=== PATIENT | female | born 1955 | race Caucasian/White ===

== ENCOUNTER 2017-01-19 00:49 | Inpatient (IN) | payer OTHER ==
--- NOTE | 2017-01-19 01:00 | C.PDOC ---
History Of Present Illness The patient presents to the ED for evaluation of mid-epigastric abdominal pain which began this morning. Patient took some antacid medicine today without relief. She denies fever, chills, nausea, vomiting. Time Seen by Provider: 01/19/17 00:59 History Per: Patient History/Exam Limitations: no limitations Onset/Duration Of Symptoms: Hrs Current Symptoms Are (Timing): Still Present Severity: Moderate Pain Scale Rating Of: 6 Location Of Pain/Discomfort: Epigastric (mid) Radiation Of Pain To:: None Quality Of Discomfort: Burning, "Pain" Associated Symptoms: denies: Fever, Chills, Nausea, Vomiting Alleviating Factors: None Last Bowel Movement: Today Recent travel outside of the [place]: No Additional History Per: Patient Abnormal Vaginal Bleeding: No Past Medical History Reviewed: Historical Data, Nursing Documentation, Vital Signs Vital Signs: Last Vital Signs Temp 97.6 F 01/19/17 01:07 Pulse 119 H 01/19/17 01:07 Resp 20 01/19/17 01:07 BP 149/91 H 01/19/17 01:07 Pulse Ox 98 01/19/17 02:13 - Medical History PMH: No Chronic Diseases Surgical History: No Surg Hx Family History: States: Unknown Family Hx - Social History Hx Alcohol Use: No Hx Substance Use: No - Immunization History Hx Tetanus Toxoid Vaccination: No Hx Influenza Vaccination: No Hx Pneumococcal Vaccination: No Review Of Systems Constitutional: Negative for: Fever, Chills Cardiovascular: Negative for: Chest Pain, Palpitations Respiratory: Negative for: Cough, Shortness of Breath Gastrointestinal: Positive for: Abdominal Pain. Negative for: Nausea, Vomiting , Diarrhea, Constipation Skin: Negative for: Rash, Lesions, Jaundice, Bruising Neurological: Negative for: Weakness Psych: Negative for: Anxiety Physical Exam - Physical Exam Appears: Non-toxic, No Acute Distress Skin: Warm, Dry Head: Normacephalic Eye(s): bilateral: Normal Inspection Oral Mucosa: Moist Neck: Supple Chest: Symmetrical, No Deformity, No Tenderness Cardiovascular: Rhythm Regular Respiratory: No Rales, No Rhonchi, No Wheezing Gastrointestinal/Abdominal: Soft, Tenderness (mid-epigastric ), No Guarding, No Rebound Extremity: Normal ROM, Capillary Refill (less than 2 seconds ) Extremity: Bilateral: Atraumatic Pulses: Left Dorsalis Pedis: Normal, Right Dorsalis Pedis: Normal Neurological/Psych: Oriented x3, Normal Speech Gait: Steady ED Course And Treatment - Laboratory Results Result Diagrams: 01/19/17 01:39 01/19/17 01:39 ECG: Interpreted By Me, Viewed By Me ECG Rhythm: Sinus Tachycardia (110), Nonspecific Changes O2 Sat by Pulse Oximetry: 98 (on RA ) Pulse Ox Interpretation: Normal Progress Note: Bloodwork, UA, EKG ordered and reviewed. Protonix IVP. Disposition Discussed With Dr.: Dvaid Vera Comment: accepted the pt onhis service and took over the care at 4AM Doctor Will See Patient In The: Hospital Counseled Patient/Family Regarding: Studies Performed, Diagnosis - Disposition Disposition: HOSPITALIZED Disposition Time: 01:00 Condition: FAIR - POA Present On Arrival: Poor Glycemic Control - Clinical Impression Clinical Impression: Acute pancreatitis, Abdominal pain - Scribe Statement The provider has reviewed the documentation as recorded by the Scribe (Che Brice) Provider Attestation: All medical record entries made by the Scribe were at my direction and personally dictated by me. I have reviewed the chart and agree that the record accurately reflects my personal performance of the history, physical exam, medical decision making, and the department course for this patient. I have also personally directed, reviewed, and agree with the discharge instructions and disposition. Decision To Admit - Pt Status Changed To: Hospital Disposition Of: Inpatient - Admit Certification Admit to Inpatient:: After my assessment, the patient will require hospitalization for at least two midnights. This is because of the severity of symptoms shown, intensity of services needed, and/or the medical risk in this patient being treated as an outpatient. - InPatient: Physician Admission Certification:: After my assessment, the patient will require hospitalization for at least two midnights. This is because of the severity of symptoms shown, intensity of services needed, and/or the medical risk in this patient being treated as an outpatient. - . Bed Request Type: Regular Admitting Physician: David Vera Patient Diagnosis: Acute pancreatitis, Abdominal pain
[2017-01-19 01:03] VITALS: BMI 23.2
[2017-01-19 01:48] LABS: RBC URINE 5 /hpf (0-3); URINE BILIRUBIN NEGATIVE (NEGATIVE); URINE BLOOD NEGATIVE (NEGATIVE); URINE COLOR Yellow (YELLOW); URINE GLUCOSE (UA) NORMAL (Normal); URINE KETONE NEGATIVE (NEGATIVE); URINE LEUKOCYTE ESTERASE NEG Leu/uL (Negative); URINE PROTEIN 1+ mg/dL (NEGATIVE); URINE UROBILINOGEN NORMAL mg/dL (0.2-1.0); WBC URINE 4 /hpf (0-5)
[2017-01-19 02:10] LABS: ALKALINE PHOSPHATASE 90 U/L (38-126); ALT/SGPT 37 U/L (9-52); AST/SGOT 29 U/L (14-36); BILIRUBIN,TOTAL 1.4 mg/dL (0.2-1.3); BLOOD UREA NITROGEN 15 mg/dL (7-17); CALCIUM 8.2 mg/dl (8.6-10.4); CARBON DIOXIDE 22 mmol/L (22-30); CHLORIDE 101 mmol/L (98-107); GFR AFRICAN-AMERICAN > 60; GLUCOSE,RANDOM 128 mg/dL (65-105); POTASSIUM 3.8 mmol/L (3.6-5.2); SODIUM 138 mmol/L (132-148); TOTAL PROTEIN 8.4 g/dL (6.3-8.3)
[2017-01-19 02:34] LABS: BASO # 0.1 K/uL (0.0-0.2); BASO % 0.6 % (0.0-2.0); EOS # 0.1 K/uL (0.0-0.7); EOS % 0.7 % (0.0-4.0); HEMATOCRIT 39.9 % (34.0-47.0); LYMPH # 1.9 K/uL (1.0-4.3); LYMPH % 15.8 % (20.0-40.0); MEAN CELL VOLUME 81.3 fL (81.0-99.0); MEAN CORPUSCULAR HEMOGLOBIN 27.9 pg (27.0-31.0); MEAN CORPUSCULAR HGB CONC 34.3 g/dL (33.0-37.0); MEAN PLATELET VOLUME 9.5 fL (7.2-11.7); MONO # 0.7 K/uL (0.0-0.8); MONO % 5.7 % (0.0-10.0); NRBC % 0.5 % (0.0-2.0); RED CELL DISTRIBUTION WIDTH 13.6 % (11.5-14.5); WHITE BLOOD COUNT 11.8 K/uL (4.8-10.8)
[2017-01-19] MEDS ORDERED: Iodixanol 320 MG/ML 100 ML BOTTLE IV ONE (02:56)
--- NOTE | 2017-01-19 03:55 | CT ---
EXAM: CT Abdomen and Pelvis With Intravenous Contrast EXAM DATE/TIME: 01/19/2017 2:20 AM CLINICAL HISTORY: 61 years old, female; Pain; Abdominal pain; Prior surgery; Surgery type: and lab choley; Patient HX: Us pelvic 06-03-13; Additional info: Elevated lipase, abd pain TECHNIQUE: Axial computed tomography images of the abdomen and pelvis with intravenous contrast. All CT scans at this facility use one or more dose reduction techniques, viz.: automated exposure control; ma/kV adjustment per patient size (including targeted exams where dose is matched to indication; i.e. head); or iterative reconstruction technique. Coronal and sagittal reformatted images were created and reviewed. CONTRAST: 100 mL of [id number] administered intravenously. COMPARISON: US - PELVIS ULTRASOUND 2013-06-03 12:25 FINDINGS: Patient motion is present limiting exam. Mild bilateral atelectasis greater on the right. Multiple hypoattenuating hepatic lesions, the majority of which are too small to accurately characterize. Assuming there are no priors for correlation, I would recommend followup to assess for stability. The spleen is normal. On axial series 7, image 63, there is a small 7 mm faint hypoattenuating area along the posterior aspect of the pancreatic body. Developing lesion cannot be excluded - short-term followup CT is recommended to assess for stability. There is a very small amount of haziness in the fat posterior to the pancreas on image 60 that is at least partially due to motion. Early superimposed inflammatory changes of pancreatitis would be possible. No gallstones. Minimal bilateral perinephric stranding. Colonic diverticulosis is present. The appendix is identified coronal images 47 through 67 axial images 42 through 53. It measures 6-7 mm in diameter which is borderline dilated. Intraluminal air is present. There are is no stranding in the periappendiceal fat to suggest active inflammatory process. There are numerous uterine fibroids one of which is partially calcified in the right fundus. Prior ultrasound report describes similar findings. IMPRESSION: Possible early mild inflammatory changes posterior to the pancreas. Subcentimeter hypoattenuating areas in the pancreas and liver for which short-term followup is recommended to assess for stability, assuming there are no priors.
[2017-01-19] MEDS ORDERED: HYDROmorphone 0.5 mg/0.5 ml ISec ONE (04:25)
[2017-01-19] MEDS: HYDROmorphone 1 mg/ml ISec IVP PRN ×2 (04:26→11:57)
[2017-01-19] MEDS: Dextrose 5%/0.45% NS 1,000 ML IV SCH ×4 (04:26→20:55)
[2017-01-19] MEDS: Enoxaparin 40 mg Syringe SC SCH (11:30)
--- NOTE | 2017-01-19 12:27 | US ---
HISTORY: acute pancreatitis COMPARISON: CT of the abdomen and pelvis with IV contrast performed 01/19/17 TECHNIQUE: Sonographic evaluation of the abdomen. FINDINGS: LIVER: Measures 17.4 cm in sagittal dimension. Echogenic liver may be seen in setting of hepatic parenchymal disease or fatty infiltration. 1.5 x 1.4 x 1.1 cm probable septated hepatic cyst. 6 mm anechoic focus too small to definitively characterize, likely tiny cyst. The main portal vein appears patent with normal directional flow. No intrahepatic bile duct dilatation. GALLBLADDER: 7 mm and 3 mm echogenic foci without posterior acoustic shadowing consistent with polyps. No gallstones. No gallbladder wall thickening. Negative sonographic Villafuerte's sign as assessed by the dimension warehouse supervisor. COMMON BILE DUCT: Measures 4 mm. PANCREAS: Not well visualized. RIGHT KIDNEY: Measures 10.9 x 5.0 x 5.9cm. No obstructing calculus or hydronephrosis identified. LEFT KIDNEY: Measures 10.9 x 5.3 x 5.8cm. No obstructing calculus, or hydronephrosis identified. SPLEEN: Measures approximately 8.7 cm. AORTA: Limited views appear unremarkable. IVC: Limited views appear unremarkable. OTHER FINDINGS: None. IMPRESSION: Two probable gallbladder polyps the largest measuring approximately 7 mm. No consensus exist regarding management of polyps in the size range. Current recommendations indicate continued surveillance with serial follow-up imaging at 3, 6, and 12 months. Echogenic liver may be seen in setting of hepatic parenchymal disease or fatty infiltration. 1.5 x 1.4 x 1.1 cm probable septated hepatic cyst. 6 mm anechoic focus too small to definitively characterize, likely tiny cyst.
[2017-01-19] MEDS ORDERED: HYDROmorphone 1 mg/ml ISec IVP PRN (12:30)
[2017-01-19 13:03] LABS: BASO # 0.1 K/uL (0.0-0.2); BASO % 0.8 % (0.0-2.0); EOS % 0.2 % (0.0-4.0); HEMATOCRIT 37.7 % (34.0-47.0); LYMPH # 2.2 K/uL (1.0-4.3); LYMPH % 13.9 % (20.0-40.0); MEAN CELL VOLUME 80.9 fL (81.0-99.0); MEAN CORPUSCULAR HEMOGLOBIN 27.8 pg (27.0-31.0); MEAN CORPUSCULAR HGB CONC 34.4 g/dL (33.0-37.0); MEAN PLATELET VOLUME 7.9 fL (7.2-11.7); MONO % 6.6 % (0.0-10.0); RED CELL DISTRIBUTION WIDTH 13.9 % (11.5-14.5); WHITE BLOOD COUNT 15.5 K/uL (4.8-10.8)
[2017-01-19 13:30] LABS: ALB/GLOB RATIO 1.3 (1.0-2.1); ALKALINE PHOSPHATASE 59 U/L (38-126); ALT/SGPT 37 U/L (9-52); AMYLASE 204 U/L (30-110); AST/SGOT 27 U/L (14-36); BILIRUBIN,TOTAL 1.3 mg/dL (0.2-1.3); BLOOD UREA NITROGEN 11 mg/dL (7-17); CARBON DIOXIDE 27 mmol/L (22-30); CHLORIDE 100 mmol/L (98-107); CHOLESTEROL 170 mg/dL (0-199); GFR AFRICAN-AMERICAN > 60; GLUCOSE,RANDOM 133 mg/dL (65-105); POTASSIUM 3.7 mmol/L (3.6-5.2); SODIUM 137 mmol/L (132-148); TOTAL PROTEIN 7.6 g/dL (6.3-8.3)
--- NOTE | 2017-01-19 16:06 | CP.PCM.CON ---
History of Present Illness - History of Present Illness History of Present Illness: This is a 61 year old woman with abdominal pain. Patient has a history of hypertriglyceridemia for the past several years, with triglycerides documented as high as 1000. She was in her usual state of health until 10:00 AM on the day of admission, when she noted sudden onset of throbbing epigastric pain, constant, accompanied by nausea and vomiting (two episodes). She denies having difficulty swallowing, constipation, diarrhea, bleeding per rectum. Previously, her appetite has been good, and her weight has been stable. In the ER, the lipase level was elevated, and she was admitted for treatment of pancreatitis. CT scan showed a low density area along the posterior aspect of the pancreatic body and a small amount of haziness in the peripancreatic fat. Sonogram showed two polyps in the GB but no stones. Review of Systems - Review of Systems All systems: reviewed and no additional remarkable complaints except - Constitutional Constitutional: absent: Chills, Fever - Cardiovascular Cardiovascular: absent: Chest Pain, Palpitations - Respiratory Respiratory: absent: Cough, Dyspnea - Gastrointestinal Gastrointestinal: Abdominal Pain, Nausea, Vomiting. absent: Constipation, Diarrhea, Dysphagia, Heartburn, Hematochezia - Integumentary Integumentary: absent: Rash - Neurological Neurological: absent: Weakness - Psychiatric Psychiatric: absent: Anxiety Past Patient History - Infectious Disease Hx of Infectious Diseases: None - Past Social History Smoking Status: Never Smoked - HEENT Other/Comment: hx of meniere's disease - MUSCULOSKELETAL/RHEUMATOLOGICAL Hx Falls: No - PSYCHIATRIC Hx Substance Use: No - SURGICAL HISTORY Hx Section: Yes Other/Comment: lap-kayla - ANESTHESIA Hx Anesthesia: Yes Hx Anesthesia Reactions: No Meds Allergies/Adverse Reactions: Allergies Allergy/AdvReac Type Severity Reaction Status Date / Time No Known Allergies Allergy Verified 01/19/17 01:11 - Medications Medications: Current Medications Enoxaparin Sodium (Lovenox) 40 mg SC DAILY [facility] Last Admin: 01/19/17 11:30 Dose: 40 mg Hydromorphone HCl (Dilaudid) 0.5 mg IVP Q4H PRN PRN Reason: Pain, moderate (4-7) Hydromorphone HCl (Dilaudid) 1 mg IVP Q4H PRN PRN Reason: Pain, severe (8-10) Dextrose/Sodium Chloride (Dextrose 5%/0.45% Ns 1000 Ml) 1,000 mls @ 100 mls/hr IV .Q10H [facility] Last Admin: 01/19/17 15:59 Dose: 100 mls/hr Ondansetron HCl (Zofran Inj) 4 mg IVP Q4 PRN PRN Reason: Nausea/Vomiting Last Admin: 01/19/17 06:02 Dose: 4 mg Physical Exam - Constitutional Appears: No Acute Distress - Head Exam Head Exam: ATRAUMATIC, NORMOCEPHALIC - Eye Exam Eye Exam: EOMI - Neck Exam Neck exam: Negative for: Lymphadenopathy, Thyromegaly - Respiratory Exam Respiratory Exam: NORMAL BREATHING PATTERN. absent: Rales, Rhonchi, Wheezes - Cardiovascular Exam Cardiovascular Exam: REGULAR RHYTHM, +S1, +S2. absent: Gallop, Rubs, Systolic Murmur - GI/Abdominal Exam GI & Abdominal Exam: Normal Bowel Sounds, Soft. absent: Mass, Organomegaly, Tenderness - Rectal Exam Rectal Exam: Deferred - Extremities Exam Extremities exam: Negative for: calf tenderness, pedal edema Results - Vital Signs Recent Vital Signs: Last Vital Signs Temp 98 F 01/19/17 07:00 Pulse 73 01/19/17 07:00 Resp 20 01/19/17 07:00 BP 114/73 01/19/17 07:00 Pulse Ox 97 01/19/17 07:00 - Labs Result Diagrams: 01/19/17 12:46 01/19/17 12:46 Labs: Laboratory Results - last 24 hr 01/19/17 01/19/17 01/19/17 01:39 01:39 01:39 WBC 11.8 H D RBC 4.90 Hgb 13.7 Hct 39.9 MCV 81.3 MCH 27.9 MCHC 34.3 RDW 13.6 Plt Count 145 MPV 9.5 Neut % (Auto) 77.2 H Lymph % (Auto) 15.8 L [place] % (Auto) 5.7 Eos % (Auto) 0.7 Baso % (Auto) 0.6 Neut # 9.1 H Lymph # 1.9 [place] # 0.7 Eos # 0.1 Baso # 0.1 PT INR APTT Sodium 138 Potassium 3.8 Chloride 101 Carbon Dioxide 22 Anion Gap 19 BUN 15 Creatinine 0.5 L Est GFR ( Amer) > 60 Est GFR (Non-Af Amer) > 60 Random Glucose 128 H Hemoglobin A1c Calcium 8.2 L Total Bilirubin 1.4 H AST 29 ALT 37 Alkaline Phosphatase 90 Total Creatine Kinase CK-MB (Mass) Troponin I Total Protein 8.4 H Albumin 4.3 Globulin 4.1 H Albumin/Globulin Ratio 1.0 Triglycerides Cholesterol LDL Cholesterol Direct HDL Cholesterol Amylase Lipase 1042 H Urine Color Yellow Urine Clarity Clear Urine pH 5.0 Ur Specific [place] 1.027 Urine Protein 1+ H Urine Glucose (UA) Normal Urine Ketones Negative Urine Blood Negative Urine Nitrate Negative Urine Bilirubin Negative Urine Urobilinogen Normal Ur Leukocyte Esterase Neg Urine WBC (Auto) 4 Urine RBC (Auto) 5 H Ur Squamous Epith Cells 2 01/19/17 01/19/17 01/19/17 02:46 12:46 12:46 WBC 15.5 H RBC 4.65 Hgb 12.9 Hct 37.7 MCV 80.9 L MCH 27.8 MCHC 34.4 RDW 13.9 Plt Count 199 MPV 7.9 Neut % (Auto) 78.5 H Lymph % (Auto) 13.9 L [place] % (Auto) 6.6 Eos % (Auto) 0.2 Baso % (Auto) 0.8 Neut # 12.2 H Lymph # 2.2 Rab[place] # 1.0 H Eos # 0.0 Baso # 0.1 PT 11.3 INR 1.0 APTT 33 Sodium 137 Potassium 3.7 Chloride 100 Carbon Dioxide 27 Anion Gap 13 BUN 11 Creatinine 0.4 L Est GFR ( Amer) > 60 Est GFR (Non-Af Amer) > 60 Random Glucose 133 H Hemoglobin A1c Calcium 8.0 L Total Bilirubin 1.3 AST 27 ALT 37 Alkaline Phosphatase 59 Total Creatine Kinase CK-MB (Mass) Troponin I Total Protein 7.6 Albumin 4.2 Globulin 3.3 Albumin/Globulin Ratio 1.3 Triglycerides 760 H Cholesterol 170 LDL Cholesterol Direct < 30 HDL Cholesterol 38 Amylase 204 H D Lipase 802 H Urine Color Urine Clarity Urine pH Ur Specific [place] Urine Protein Urine Glucose (UA) Urine Ketones Urine Blood Urine Nitrate Urine Bilirubin Urine Urobilinogen Ur Leukocyte Esterase Urine WBC (Auto) Urine RBC (Auto) Ur Squamous Epith Cells 01/19/17 01/19/17 12:46 12:49 WBC RBC Hgb Hct MCV MCH MCHC RDW Plt Count MPV Neut % (Auto) Lymph % (Auto) [place] % (Auto) Eos % (Auto) Baso % (Auto) Neut # Lymph # [place] # Eos # Baso # PT INR APTT Sodium Potassium Chloride Carbon Dioxide Anion Gap BUN Creatinine Est GFR ( Amer) Est GFR (Non-Af Amer) Random Glucose Hemoglobin A1c 5.5 Calcium Total Bilirubin AST ALT Alkaline Phosphatase Total Creatine Kinase 51 CK-MB (Mass) 0.52 Troponin I < 0.0120 Total Protein Albumin Globulin Albumin/Globulin Ratio Triglycerides Cholesterol LDL Cholesterol Direct HDL Cholesterol Amylase Lipase Urine Color Urine Clarity Urine pH Ur Specific [place] Urine Protein Urine Glucose (UA) Urine Ketones Urine Blood Urine Nitrate Urine Bilirubin Urine Urobilinogen Ur Leukocyte Esterase Urine WBC (Auto) Urine RBC (Auto) Ur Squamous Epith Cells Assessment & Plan (1) Acute pancreatitis Assessment and Plan: Patient has epigastric abdominal pain and elevated lipase consistent with pancreatitis, most probably due to hypertriglyceridemia. She will be NPO and receive parenteral analgesics and IV hydration. We will check an MRI to evaluate the low density area seen on the CT scan. Status: Acute
--- NOTE | 2017-01-20 | CP.PCM.HP ---
History of Present Illness - History of Present Illness History of Present Illness: 61 years old female complaining of abdominal pain since yesterday with nausea and vomiting x 2 . On admission, she was found to have a serum lipase: 1004, and a serum amylase 200, and serum triglycerides 700. A Ct scan of the abdomen suggests an inflammation of the posterior aspect of the pancreas, and an abdominal US reveals 2 small gallbladder polyps. No gallstone or CBD stone was detected. Present on Admission - Present on Admission Any Indicators Present on Admission: No Review of Systems - Gastrointestinal Gastrointestinal: Abdominal Pain, Nausea, Vomiting Past Patient History - Infectious Disease Hx of Infectious Diseases: None - Tetanus Immunizations Tetanus Immunization: Unknown - Past Medical History & Family History Past Medical History?: Yes - Past Social History Smoking Status: Never Smoked Alcohol: None Drugs: Denies Home Situation {Lives}: With Family Domestic Violence: Negative - CARDIAC Hx Hypercholesterolemia: Yes (Hypertriglyceridemia.) - HEENT Other/Comment: hx of meniere's disease - MUSCULOSKELETAL/RHEUMATOLOGICAL Hx Falls: No - PSYCHIATRIC Hx Substance Use: No - SURGICAL HISTORY Hx Section: Yes Other/Comment: lap-[place] - ANESTHESIA Hx Anesthesia: Yes Hx Anesthesia Reactions: No Meds Allergies/Adverse Reactions: Allergies Allergy/AdvReac Type Severity Reaction Status Date / Time No Known Allergies Allergy Verified 01/19/17 01:11 Physical Exam - Constitutional Appears: No Acute Distress - Head Exam Head Exam: NORMAL INSPECTION - Eye Exam Eye Exam: Normal appearance - ENT Exam ENT Exam: Normal Exam - Neck Exam Neck exam: Positive for: Normal Inspection - Respiratory Exam Respiratory Exam: Clear to Auscultation Bilateral, NORMAL BREATHING PATTERN - Cardiovascular Exam Cardiovascular Exam: REGULAR RHYTHM - GI/Abdominal Exam GI & Abdominal Exam: Normal Bowel Sounds, Tenderness Additional comments: No guarding. - Rectal Exam Rectal Exam: Deferred - Extremities Exam Extremities exam: Positive for: normal inspection - Back Exam Back exam: NORMAL INSPECTION - Neurological Exam Neurological exam: Alert, Oriented x3 - Psychiatric Exam Psychiatric exam: Anxious - Skin Skin Exam: Dry, Intact, Normal Color Results - Vital Signs Recent Vital Signs: Last Vital Signs Temp 98 F 01/19/17 07:00 Pulse 73 01/19/17 07:00 Resp 20 01/19/17 07:00 BP 114/73 01/19/17 07:00 Pulse Ox 97 01/19/17 07:00 - Labs Result Diagrams: 01/19/17 12:46 01/19/17 12:46 Labs: Laboratory Results - last 24 hr 01/19/17 01/19/17 01/19/17 01:39 01:39 01:39 WBC 11.8 H D RBC 4.90 Hgb 13.7 Hct 39.9 MCV 81.3 MCH 27.9 MCHC 34.3 RDW 13.6 Plt Count 145 MPV 9.5 Neut % (Auto) 77.2 H Lymph % (Auto) 15.8 L [place] % (Auto) 5.7 Eos % (Auto) 0.7 Baso % (Auto) 0.6 Neut # 9.1 H Lymph # 1.9 Bibb # 0.7 Eos # 0.1 Baso # 0.1 PT INR APTT Sodium 138 Potassium 3.8 Chloride 101 Carbon Dioxide 22 Anion Gap 19 BUN 15 Creatinine 0.5 L Est GFR ( Amer) > 60 Est GFR (Non-Af Amer) > 60 Random Glucose 128 H Hemoglobin A1c Calcium 8.2 L Total Bilirubin 1.4 H AST 29 ALT 37 Alkaline Phosphatase 90 Total Creatine Kinase CK-MB (Mass) Troponin I Total Protein 8.4 H Albumin 4.3 Globulin 4.1 H Albumin/Globulin Ratio 1.0 Triglycerides Cholesterol LDL Cholesterol Direct HDL Cholesterol Amylase Lipase 1042 H Urine Color Yellow Urine Clarity Clear Urine pH 5.0 Ur Specific [place] 1.027 Urine Protein 1+ H Urine Glucose (UA) Normal Urine Ketones Negative Urine Blood Negative Urine Nitrate Negative Urine Bilirubin Negative Urine Urobilinogen Normal Ur Leukocyte Esterase Neg Urine WBC (Auto) 4 Urine RBC (Auto) 5 H Ur Squamous Epith Cells 2 01/19/17 01/19/17 01/19/17 02:46 12:46 12:46 WBC 15.5 H RBC 4.65 Hgb 12.9 Hct 37.7 MCV 80.9 L MCH 27.8 MCHC 34.4 RDW 13.9 Plt Count 199 MPV 7.9 Neut % (Auto) 78.5 H Lymph % (Auto) 13.9 L [place] % (Auto) 6.6 Eos % (Auto) 0.2 Baso % (Auto) 0.8 Neut # 12.2 H Lymph # 2.2 Bibb # 1.0 H Eos # 0.0 Baso # 0.1 PT 11.3 INR 1.0 APTT 33 Sodium 137 Potassium 3.7 Chloride 100 Carbon Dioxide 27 Anion Gap 13 BUN 11 Creatinine 0.4 L Est GFR ( Amer) > 60 Est GFR (Non-Af Amer) > 60 Random Glucose 133 H Hemoglobin A1c Calcium 8.0 L Total Bilirubin 1.3 AST 27 ALT 37 Alkaline Phosphatase 59 Total Creatine Kinase CK-MB (Mass) Troponin I Total Protein 7.6 Albumin 4.2 Globulin 3.3 Albumin/Globulin Ratio 1.3 Triglycerides 760 H Cholesterol 170 LDL Cholesterol Direct < 30 HDL Cholesterol 38 Amylase 204 H D Lipase 802 H Urine Color Urine Clarity Urine pH Ur Specific [place] Urine Protein Urine Glucose (UA) Urine Ketones Urine Blood Urine Nitrate Urine Bilirubin Urine Urobilinogen Ur Leukocyte Esterase Urine WBC (Auto) Urine RBC (Auto) Ur Squamous Epith Cells 01/19/17 01/19/17 12:46 12:49 WBC RBC Hgb Hct MCV MCH MCHC RDW Plt Count MPV Neut % (Auto) Lymph % (Auto) [place] % (Auto) Eos % (Auto) Baso % (Auto) Neut # Lymph # [place] # Eos # Baso # PT INR APTT Sodium Potassium Chloride Carbon Dioxide Anion Gap BUN Creatinine Est GFR ( Amer) Est GFR (Non-Af Amer) Random Glucose Hemoglobin A1c 5.5 Calcium Total Bilirubin AST ALT Alkaline Phosphatase Total Creatine Kinase 51 CK-MB (Mass) 0.52 Troponin I < 0.0120 Total Protein Albumin Globulin Albumin/Globulin Ratio Triglycerides Cholesterol LDL Cholesterol Direct HDL Cholesterol Amylase Lipase Urine Color Urine Clarity Urine pH Ur Specific [place] Urine Protein Urine Glucose (UA) Urine Ketones Urine Blood Urine Nitrate Urine Bilirubin Urine Urobilinogen Ur Leukocyte Esterase Urine WBC (Auto) Urine RBC (Auto) Ur Squamous Epith Cells Assessment & Plan (1) Acute pancreatitis Assessment and Plan: NPO . IV hydration. Status: Acute (2) Hypertriglyceridemia Assessment and Plan: Will start Fenofibrate. Status: Acute Decision To Admit - Pt Status Changed To: Hospital Disposition Of: Inpatient - Admit Certification Admit to Inpatient:: After my assessment, the patient will require hospitalization for at least two midnights. This is because of the severity of symptoms shown, intensity of services needed, and/or the medical risk in this patient being treated as an outpatient. - InPatient: Physician Admission Certification:: After my assessments, the patient requires hospitalization for at least two midnights. - . Bed Request Type: Regular Admitting Physician: David Vera
[2017-01-20] MEDS: Dextrose 5%/0.45% NS 1,000 ML IV SCH ×7 (01:23→20:36)
[2017-01-20] MEDS: HYDROmorphone 0.5 mg/0.5 ml ISec IVP PRN ×2 (06:21→21:17)
[2017-01-20 07:30] LABS: BASO % 0.3 % (0.0-2.0); EOS # 0.1 K/uL (0.0-0.7); EOS % 0.8 % (0.0-4.0); HEMATOCRIT 34.5 % (34.0-47.0); LYMPH # 1.5 K/uL (1.0-4.3); LYMPH % 17.2 % (20.0-40.0); MEAN CELL VOLUME 80.9 fL (81.0-99.0); MEAN CORPUSCULAR HGB CONC 34.6 g/dL (33.0-37.0); MEAN PLATELET VOLUME 7.7 fL (7.2-11.7); MONO # 0.3 K/uL (0.0-0.8); MONO % 3.8 % (0.0-10.0); RED CELL DISTRIBUTION WIDTH 13.8 % (11.5-14.5); WHITE BLOOD COUNT 8.6 K/uL (4.8-10.8)
[2017-01-20 08:00] LABS: ALB/GLOB RATIO 1.2 (1.0-2.1); ALKALINE PHOSPHATASE 47 U/L (38-126); ALT/SGPT 33 U/L (9-52); AST/SGOT 18 U/L (14-36); BILIRUBIN,TOTAL 0.9 mg/dL (0.2-1.3); BLOOD UREA NITROGEN 5 mg/dL (7-17); CALCIUM 7.7 mg/dl (8.6-10.4); CARBON DIOXIDE 29 mmol/L (22-30); CHLORIDE 105 mmol/L (98-107); GFR AFRICAN-AMERICAN > 60; GLUCOSE,RANDOM 139 mg/dL (65-105); POTASSIUM 3.3 mmol/L (3.6-5.2); SODIUM 139 mmol/L (132-148); TOTAL PROTEIN 6.5 g/dL (6.3-8.3)
--- NOTE | 2017-01-20 08:13 | CP.PCM.PN ---
Subjective - Date & Time of Evaluation Date of Evaluation: 01/20/17 Time of Evaluation: 08:11 - Subjective Subjective: Patient states that the pain is less severe, but narcotics are still necessary for pain control. She denies having nausea or vomiting. She has not had a bowel movement so far today. The MRI is pending. Objective - Vital Signs/Intake and Output Vital Signs (last 24 hours): Temp Pulse Resp BP Pulse Ox 98.6 F 93 H 20 122/78 95 01/20/17 00:00 01/20/17 00:00 01/20/17 00:00 01/20/17 00:00 01/20/17 00:00 Intake and Output: 01/20/17 01/20/17 06:59 18:59 Intake Total 1999 Balance 1999 - Medications Medications: Current Medications Enoxaparin Sodium (Lovenox) 40 mg SC DAILY [facility] Last Admin: 01/19/17 11:30 Dose: 40 mg Fenofibrate (Tricor) 145 mg PO QPM [facility] Hydromorphone HCl (Dilaudid) 0.5 mg IVP Q4H PRN PRN Reason: Pain, moderate (4-7) Last Admin: 01/20/17 06:21 Dose: 0.5 mg Hydromorphone HCl (Dilaudid) 1 mg IVP Q4H PRN PRN Reason: Pain, severe (8-10) Dextrose/Sodium Chloride (Dextrose 5%/0.45% Ns 1000 Ml) 1,000 mls @ 250 mls/hr IV .Q4H [facility] Last Admin: 01/20/17 04:42 Dose: 250 mls/hr Ondansetron HCl (Zofran Inj) 4 mg IVP Q4 PRN PRN Reason: Nausea/Vomiting Last Admin: 01/19/17 06:02 Dose: 4 mg - Labs Labs: 01/20/17 07:18 01/20/17 07:18 PT 11.3 SECONDS (9.7-12.2) 01/19/17 02:46 INR 1.0 01/19/17 02:46 APTT 33 SECONDS (21-34) 01/19/17 02:46 - Constitutional Appears: No Acute Distress - Head Exam Head Exam: ATRAUMATIC, NORMOCEPHALIC - Eye Exam Eye Exam: EOMI - Neck Exam Neck Exam: absent: Lymphadenopathy, Thyromegaly - Respiratory Exam Respiratory Exam: NORMAL BREATHING PATTERN. absent: Rales, Rhonchi, Wheezes - Cardiovascular Exam Cardiovascular Exam: REGULAR RHYTHM, +S1, +S2. absent: Gallop, Rubs, Murmur - GI/Abdominal Exam GI & Abdominal Exam: Soft, Tenderness, Hypoactive Bowel Sounds. absent: Mass, Organomegaly Additional comments: Mild tenderness to direct palpation in epigastrium - Rectal Exam Rectal Exam: Deferred - Extremities Exam Extremities Exam: absent: Calf Tenderness, Pedal Edema Assessment and Plan (1) Acute pancreatitis Assessment & Plan: Pain is improving but has not resolved. With hydration, the HCT has declined from 39.9 to 34.5 and the BUN/Cr rom 15/0.5 to 5/0.6. Will check MRI and advance diet as tolerated. Status: Acute
[2017-01-20] MEDS ORDERED: Gadodiamide 287 MG/ML VIAL (15ML) IV ONE (09:04)
--- NOTE | 2017-01-20 11:17 | MRI ---
PROCEDURE: Magnetic Resonance Cholangiopancreatography MRI OF THE ABDOMEN WITH AND WITHOUT CONTRAST. HISTORY: Low density area in the pancreatic body. Sub centimeter hypo attenuation areas in the pancreas and liver noted in the previous CT of the abdomen dated 01/19/2017. Two probable gallbladder polyps noted in the previous ultrasound of the abdomen dated 01/19/2017. COMPARISON: Comparison is made to the previous CT of the abdomen and pelvis and ultrasound of the abdomen dated 01/19/2017.. TECHNIQUE: Multiplanar, multisequence MR images of the abdomen were obtained, including heavily T2 weighted MRCP images of the biliary system. Rotating maximum intensity projection images of the biliary system were generated. FINDINGS: MRCP: The common bile duct is of a normal caliber. No evidence of choledocholithiasis. No intrahepatic biliary ductal dilatation. LIVER: There are few scattered foci of hyperintense T2 and hypointense T1 signal without evidence of significant enhancement in the right liver lobe. The largest focus seen at the medial inferior aspect of the right liver lobe measures 40 millimeter in the transverse diameter and 16 millimeter in the AP diameter. Findings likely represent benign liver cysts. The liver is otherwise demonstrates homogeneous enhancement. The portal vein is patent. GALLBLADDER: Unremarkable. SPLEEN: Unremarkable. PANCREAS: There is with defined hypointense T1 signal lesions seen at the midline pancreatic body measures 10.4 millimeter in the transverse diameter and 13 millimeter in the AP diameter demonstrates no significant enhancement. Both benign and cystic malignant pancreatic neoplasm may share these signal characteristic. Interval follow-up reassessment is suggested. The pancreas is otherwise normal in size and shape. The main pancreatic duct is not dilated. ADRENALS: Unremarkable. KIDNEYS: Unremarkable. AORTA: No aneurysm. ASCITES: None. OTHER FINDINGS: None. IMPRESSION: Hypo intense T1 and hyperintense T2 signal nonenhancing cystic lesions seen in the liver with the largest lesion at the medial inferior aspect of the right liver lobe as described above. Findings likely represent benign liver cysts. Hypointense nonenhancing lesion seen at the pancreatic body. Interval follow-up reassessment after 3 months is recommended to document stability of this lesion. No evidence of acute pathology in the abdomen and pelvis. No evidence of mass lesion or acute pathology in the gallbladder and biliary tree.
[2017-01-20] MEDS: Enoxaparin 40 mg Syringe SC SCH (12:30)
[2017-01-20] MEDS ORDERED: Potassium Chloride 20 mEq/15 ml LIQ UD PO ONE (15:15)
--- NOTE | 2017-01-20 20:18 | CP.PCM.PN ---
Subjective - Date & Time of Evaluation Date of Evaluation: 01/20/17 Time of Evaluation: 20:16 - Subjective Subjective: Patient still has abdominal pain. Tolerates clear liquid diet. WBC better. Serum lipase 800. K+3.3. MRI reveal a hypodense and non-enhancing lesion of the pancreatic body. No cholelithiasis. Objective - Vital Signs/Intake and Output Vital Signs (last 24 hours): Temp Pulse Resp BP Pulse Ox 98.9 F 88 20 133/79 98 01/20/17 15:06 01/20/17 15:06 01/20/17 15:06 01/20/17 15:06 01/20/17 15:06 Intake and Output: 01/20/17 01/21/17 18:59 06:59 Intake Total 3120 Balance 3120 - Medications Medications: Current Medications Enoxaparin Sodium (Lovenox) 40 mg SC DAILY [facility] Last Admin: 01/20/17 12:30 Dose: 40 mg Fenofibrate (Tricor) 145 mg PO QPM [facility] Last Admin: 01/20/17 18:52 Dose: 145 mg Hydromorphone HCl (Dilaudid) 0.5 mg IVP Q4H PRN PRN Reason: Pain, moderate (4-7) Last Admin: 01/20/17 06:21 Dose: 0.5 mg Hydromorphone HCl (Dilaudid) 1 mg IVP Q4H PRN PRN Reason: Pain, severe (8-10) Dextrose/Sodium Chloride (Dextrose 5%/0.45% Ns 1000 Ml) 1,000 mls @ 100 mls/hr IV .Q10H [facility] Ondansetron HCl (Zofran Inj) 4 mg IVP Q4 PRN PRN Reason: Nausea/Vomiting Last Admin: 01/19/17 06:02 Dose: 4 mg - Labs Labs: 01/20/17 07:18 01/20/17 07:18 PT 11.3 SECONDS (9.7-12.2) 01/19/17 02:46 INR 1.0 01/19/17 02:46 APTT 33 SECONDS (21-34) 01/19/17 02:46 - Constitutional Appears: No Acute Distress - Head Exam Head Exam: NORMAL INSPECTION - Eye Exam Eye Exam: Normal appearance - ENT Exam ENT Exam: Normal Exam - Neck Exam Neck Exam: Normal Inspection - Respiratory Exam Respiratory Exam: Clear to Ausculation Bilateral, NORMAL BREATHING PATTERN - Cardiovascular Exam Cardiovascular Exam: REGULAR RHYTHM - GI/Abdominal Exam GI & Abdominal Exam: Soft, Hyperactive Bowel Sounds Additional comments: Mild epigastric tenderness. - Rectal Exam Rectal Exam: Deferred - Extremities Exam Extremities Exam: Normal Inspection - Back Exam Back Exam: NORMAL INSPECTION - Neurological Exam Neurological Exam: Alert, Awake, Normal Gait, Oriented x3 - Psychiatric Exam Psychiatric exam: Anxious - Skin Skin Exam: Intact, Normal Color, Warm Assessment and Plan (1) Acute pancreatitis Assessment & Plan: To continue pain management. Status: Acute (2) Hypertriglyceridemia Assessment & Plan: Start on Fenofibrate. Replace KCl. Status: Acute
[2017-01-21] MEDS: Dextrose 5%/0.45% NS 1,000 ML IV SCH ×2 (06:09→16:12)
[2017-01-21 08:32] LABS: BASO % 0.6 % (0.0-2.0); EOS # 0.1 K/uL (0.0-0.7); EOS % 2.6 % (0.0-4.0); HEMATOCRIT 34.7 % (34.0-47.0); LYMPH # 1.8 K/uL (1.0-4.3); LYMPH % 33.3 % (20.0-40.0); MEAN CELL VOLUME 81.5 fL (81.0-99.0); MEAN CORPUSCULAR HGB CONC 34.4 g/dL (33.0-37.0); MEAN PLATELET VOLUME 8.2 fL (7.2-11.7); MONO # 0.4 K/uL (0.0-0.8); MONO % 7.2 % (0.0-10.0); RED CELL DISTRIBUTION WIDTH 13.7 % (11.5-14.5); WHITE BLOOD COUNT 5.5 K/uL (4.8-10.8)
[2017-01-21 08:53] LABS: ALB/GLOB RATIO 1.3 (1.0-2.1); ALKALINE PHOSPHATASE 50 U/L (38-126); ALT/SGPT 30 U/L (9-52); AMYLASE 72 U/L (30-110); AST/SGOT 20 U/L (14-36); BILIRUBIN,TOTAL 0.9 mg/dL (0.2-1.3); BLOOD UREA NITROGEN 5 mg/dL (7-17); CARBON DIOXIDE 30 mmol/L (22-30); CHLORIDE 103 mmol/L (98-107); GFR AFRICAN-AMERICAN > 60; GLUCOSE,RANDOM 115 mg/dL (65-105); POTASSIUM 3.3 mmol/L (3.6-5.2); SODIUM 139 mmol/L (132-148); TOTAL PROTEIN 6.6 g/dL (6.3-8.3)
--- NOTE | 2017-01-21 09:35 | CP.PCM.PN ---
Subjective - Date & Time of Evaluation Date of Evaluation: 01/21/17 Time of Evaluation: 09:32 - Subjective Subjective: Patient states that the pain is improving, but she did require pain medication last night. She denies having nausea or vomiting. She had three bowel movements yesterday, two of which were loose. Objective - Vital Signs/Intake and Output Vital Signs (last 24 hours): Temp Pulse Resp BP Pulse Ox 98.2 F 76 20 130/85 97 01/21/17 07:43 01/21/17 07:43 01/21/17 07:43 01/21/17 07:43 01/21/17 07:43 Intake and Output: 01/21/17 01/21/17 06:59 18:59 Intake Total 630 Balance 630 - Medications Medications: Current Medications Enoxaparin Sodium (Lovenox) 40 mg SC DAILY [facility] Last Admin: 01/20/17 12:30 Dose: 40 mg Fenofibrate (Tricor) 145 mg PO QPM [facility] Last Admin: 01/20/17 18:52 Dose: 145 mg Hydromorphone HCl (Dilaudid) 0.5 mg IVP Q4H PRN PRN Reason: Pain, moderate (4-7) Last Admin: 01/20/17 21:17 Dose: 0.5 mg Hydromorphone HCl (Dilaudid) 1 mg IVP Q4H PRN PRN Reason: Pain, severe (8-10) Dextrose/Sodium Chloride (Dextrose 5%/0.45% Ns 1000 Ml) 1,000 mls @ 100 mls/hr IV .Q10H [facility] Last Admin: 01/21/17 06:09 Dose: 100 mls/hr Ondansetron HCl (Zofran Inj) 4 mg IVP Q4 PRN PRN Reason: Nausea/Vomiting Last Admin: 01/19/17 06:02 Dose: 4 mg - Labs Labs: 01/21/17 08:00 01/21/17 08:00 PT 11.3 SECONDS (9.7-12.2) 01/19/17 02:46 INR 1.0 01/19/17 02:46 APTT 33 SECONDS (21-34) 01/19/17 02:46 - Constitutional Appears: No Acute Distress - Head Exam Head Exam: ATRAUMATIC, NORMOCEPHALIC - Eye Exam Eye Exam: EOMI - Neck Exam Neck Exam: absent: Lymphadenopathy, Thyromegaly - Respiratory Exam Respiratory Exam: NORMAL BREATHING PATTERN. absent: Rales, Rhonchi, Wheezes - Cardiovascular Exam Cardiovascular Exam: REGULAR RHYTHM, +S1, +S2. absent: Gallop, Rubs, Murmur - GI/Abdominal Exam GI & Abdominal Exam: Soft, Hypoactive Bowel Sounds. absent: Tenderness, Mass, Organomegaly - Rectal Exam Rectal Exam: Deferred - Extremities Exam Extremities Exam: absent: Calf Tenderness, Pedal Edema Assessment and Plan (1) Acute pancreatitis Assessment & Plan: Patient states that pain is improving. She is tolerating a regular diet, without nausea or vomiting. Suggest checking stool for C difficile and repeating CBC to check on the platelet count. The imaging finding of a 13 mm by 10.4 mm lesion in the pancreatic body will be followed up with an outpatient MRI in six weeks. Status: Acute
[2017-01-21] MEDS: Enoxaparin 40 mg Syringe SC SCH (10:00)
[2017-01-21 14:21] LABS: HEMATOCRIT 35.2 % (34.0-47.0); MEAN CELL VOLUME 81.5 fL (81.0-99.0); MEAN CORPUSCULAR HEMOGLOBIN 28.5 pg (27.0-31.0); MEAN PLATELET VOLUME 8.2 fL (7.2-11.7); RED CELL DISTRIBUTION WIDTH 13.8 % (11.5-14.5); WHITE BLOOD COUNT 4.7 K/uL (4.8-10.8)
--- NOTE | 2017-01-21 14:28 | CP.PCM.PN ---
Subjective - Date & Time of Evaluation Date of Evaluation: 01/21/17 Time of Evaluation: 14:25 - Subjective Subjective: Patient still has mild abdominal pain and loose BM. WBCC: 5.400 Plt: 115,000 ( Lovenox discontinued) K+: 3.3 Liver enzymes: WNL. Will repeat CBC, Ca 19-9, and CMP in AM. Objective - Vital Signs/Intake and Output Vital Signs (last 24 hours): Temp Pulse Resp BP Pulse Ox 98.2 F 76 20 130/85 97 01/21/17 07:43 01/21/17 07:43 01/21/17 07:43 01/21/17 07:43 01/21/17 07:43 Intake and Output: 01/21/17 01/21/17 06:59 18:59 Intake Total 630 Balance 630 - Medications Medications: Current Medications Enoxaparin Sodium (Lovenox) 40 mg SC DAILY [facility] Last Admin: 01/21/17 10:00 Dose: Not Given Fenofibrate (Tricor) 145 mg PO QPM [facility] Last Admin: 01/20/17 18:52 Dose: 145 mg Hydromorphone HCl (Dilaudid) 0.5 mg IVP Q4H PRN PRN Reason: Pain, moderate (4-7) Last Admin: 01/20/17 21:17 Dose: 0.5 mg Dextrose/Sodium Chloride (Dextrose 5%/0.45% Ns 1000 Ml) 1,000 mls @ 100 mls/hr IV .Q10H [facility] Last Admin: 01/21/17 06:09 Dose: 100 mls/hr Ondansetron HCl (Zofran Inj) 4 mg IVP Q4 PRN PRN Reason: Nausea/Vomiting Last Admin: 01/19/17 06:02 Dose: 4 mg - Labs Labs: 01/21/17 14:17 01/21/17 08:00 PT 11.3 SECONDS (9.7-12.2) 01/19/17 02:46 INR 1.0 01/19/17 02:46 APTT 33 SECONDS (21-34) 01/19/17 02:46 - Constitutional Appears: Non-toxic, No Acute Distress - Head Exam Head Exam: NORMAL INSPECTION - Eye Exam Eye Exam: Normal appearance - ENT Exam ENT Exam: Normal Exam - Neck Exam Neck Exam: Normal Inspection - Respiratory Exam Respiratory Exam: Clear to Ausculation Bilateral - Cardiovascular Exam Cardiovascular Exam: REGULAR RHYTHM - GI/Abdominal Exam GI & Abdominal Exam: Soft, Normal Bowel Sounds Additional comments: Mild epigastric tenderness. - Rectal Exam Rectal Exam: Deferred - Extremities Exam Extremities Exam: Normal Inspection - Back Exam Back Exam: NORMAL INSPECTION - Neurological Exam Neurological Exam: Alert, Awake, Oriented x3 - Psychiatric Exam Psychiatric exam: Anxious - Skin Skin Exam: Dry, Intact, Normal Color Assessment and Plan (1) Acute pancreatitis Assessment & Plan: Improving today. But the patient still abdominal pain after eating. Status: Acute (2) Hypertriglyceridemia Assessment & Plan: To continue Fenofibrate 145 mg PO qd. Status: Chronic
[2017-01-21] MEDS ORDERED: Potassium Chloride 20 mEq ER Tab PO ONE (14:45)
[2017-01-22 00:01] VITALS: RESP 20
[2017-01-22] MEDS: Dextrose 5%/0.45% NS 1,000 ML IV SCH ×2 (02:28→12:25)
[2017-01-22 09:01] VITALS: BP 129/82; PULSE 81; TEMP 97.5; O2SAT 96
--- NOTE | 2017-01-22 09:35 | CARD ---
APPROVED REPORT EKG Measurement Heart [id number] SD [id number] [id number] <Conclusion> Sinus tachycardia Inferior infarct, age undetermined Abnormal ECG
--- NOTE | 2017-01-22 09:50 | CP.PCM.PN ---
Subjective - Date & Time of Evaluation Date of Evaluation: 01/22/17 Time of Evaluation: 09:47 - Subjective Subjective: Patient denies having abdominal pain and has not requested pain medication. She denies having nausea, vomiting. She has had two soft bowel movements this morning. Objective - Vital Signs/Intake and Output Vital Signs (last 24 hours): Temp Pulse Resp BP Pulse Ox 97.5 F L 81 20 129/82 96 01/22/17 09:01 01/22/17 09:01 01/22/17 09:01 01/22/17 09:01 01/22/17 09:01 Intake and Output: 01/22/17 01/22/17 06:59 18:59 Intake Total 1790 Balance 1790 - Medications Medications: Current Medications Enoxaparin Sodium (Lovenox) 40 mg SC DAILY [facility] Last Admin: 01/21/17 10:00 Dose: Not Given Fenofibrate (Tricor) 145 mg PO QPM [facility] Last Admin: 01/21/17 17:56 Dose: 145 mg Hydromorphone HCl (Dilaudid) 0.5 mg IVP Q4H PRN PRN Reason: Pain, moderate (4-7) Last Admin: 01/20/17 21:17 Dose: 0.5 mg Dextrose/Sodium Chloride (Dextrose 5%/0.45% Ns 1000 Ml) 1,000 mls @ 100 mls/hr IV .Q10H [facility] Last Admin: 01/22/17 02:28 Dose: 100 mls/hr Ondansetron HCl (Zofran Inj) 4 mg IVP Q4 PRN PRN Reason: Nausea/Vomiting Last Admin: 01/19/17 06:02 Dose: 4 mg - Labs Labs: 01/21/17 14:17 01/21/17 08:00 PT 11.3 SECONDS (9.7-12.2) 01/19/17 02:46 INR 1.0 01/19/17 02:46 APTT 33 SECONDS (21-34) 01/19/17 02:46 - Constitutional Appears: No Acute Distress - Head Exam Head Exam: ATRAUMATIC, NORMOCEPHALIC - Eye Exam Eye Exam: EOMI - Neck Exam Neck Exam: absent: Lymphadenopathy, Thyromegaly - Respiratory Exam Respiratory Exam: NORMAL BREATHING PATTERN. absent: Rales, Rhonchi, Wheezes - Cardiovascular Exam Cardiovascular Exam: REGULAR RHYTHM, +S1, +S2. absent: Gallop, Rubs, Murmur - GI/Abdominal Exam GI & Abdominal Exam: Soft, Normal Bowel Sounds. absent: Tenderness, Mass, Organomegaly - Rectal Exam Rectal Exam: Deferred - Extremities Exam Extremities Exam: absent: Calf Tenderness, Pedal Edema Assessment and Plan (1) Acute pancreatitis Assessment & Plan: Pain has resolved, and she is tolerating the diet She has had several loose bowel movements, and stool for C difficile was requested. CA 19-9 was within normal limits at 22.4. Plan is to repeat MRI in six weeks. Status: Acute
[2017-01-22] MEDS: Enoxaparin 40 mg Syringe SC SCH (10:00)
[2017-01-22 13:54] LABS: BASO % 0.5 % (0.0-2.0); EOS # 0.2 K/uL (0.0-0.7); EOS % 3.1 % (0.0-4.0); HEMATOCRIT 35.4 % (34.0-47.0); LYMPH # 1.7 K/uL (1.0-4.3); MEAN CORPUSCULAR HEMOGLOBIN 28.3 pg (27.0-31.0); MEAN CORPUSCULAR HGB CONC 34.9 g/dL (33.0-37.0); MEAN PLATELET VOLUME 8.9 fL (7.2-11.7); MONO # 0.4 K/uL (0.0-0.8); MONO % 7.1 % (0.0-10.0); RED CELL DISTRIBUTION WIDTH 13.4 % (11.5-14.5); WHITE BLOOD COUNT 4.9 K/uL (4.8-10.8)
[2017-01-22 14:06] LABS: ALB/GLOB RATIO 0.9 (1.0-2.1); ALKALINE PHOSPHATASE 56 U/L (38-126); ALT/SGPT 27 U/L (9-52); AMYLASE 81 U/L (30-110); AST/SGOT 16 U/L (14-36); BILIRUBIN,TOTAL 0.9 mg/dL (0.2-1.3); BLOOD UREA NITROGEN 9 mg/dL (7-17); CALCIUM 8.5 mg/dl (8.6-10.4); CARBON DIOXIDE 29 mmol/L (22-30); CHLORIDE 105 mmol/L (98-107); GFR AFRICAN-AMERICAN > 60; GLUCOSE,RANDOM 192 mg/dL (65-105); POTASSIUM 3.8 mmol/L (3.6-5.2); SODIUM 140 mmol/L (132-148); TOTAL PROTEIN 8.4 g/dL (6.3-8.3)
== END 2017-01-22 15:40 | disposition home or self-care (01) | DRG 440 ==
LOC: C.ER 00:49 → C.9E 04:08 → C.3T 04:28 → C.5S 04:32
PROVIDERS: ADMIT Internal Medicine Cardiovascular Disease; ATTEND Internal Medicine Cardiovascular Disease
DX: K85.90 Acute pancreatitis without necrosis or infection, unspecified (principal); E78.00 Pure hypercholesterolemia, unspecified; E78.1 Pure hyperglyceridemia

== ENCOUNTER 2017-07-17 19:14 | Inpatient (IN) | payer OTHER ==
[2017-07-17 19:14] VITALS: BMI 23.2
[2017-07-17] MEDS ORDERED: Sodium Chloride 0.9% 1,000 ML IV ONE (20:27)
--- NOTE | 2017-07-17 20:27 | C.PDOC ---
History Of Present Illness 62 year old female presents to the ED c/o abdominal pain, nausea, diarrhea that started today at 11:00. Patient describes her pain as dull, achy and rates it at a 5/10. Patient reports she had a MRI done a year ago which showed a cystic lesion in her liver and a questionable cyst in her pancreas, however patient reports she has not followed up with a Doctor. Patient denies fever, chills, CP , SOB, outside food, recent travel. Time Seen by Provider: 07/17/17 20:27 Chief Complaint (Nursing): Abdominal Pain History Per: Patient History/Exam Limitations: no limitations Onset/Duration Of Symptoms: Hrs Current Symptoms Are (Timing): Still Present Severity: Mild Pain Scale Rating Of: 4 Location Of Pain/Discomfort: Epigastric Radiation Of Pain To:: None Quality Of Discomfort: Dull, Aching Associated Symptoms: Nausea, Diarrhea Alleviating Factors: None Last Bowel Movement: Today Recent travel outside of the [place]: No Additional History Per: Patient Abnormal Vaginal Bleeding: No Past Medical History Reviewed: Historical Data, Nursing Documentation, Vital Signs Vital Signs: Last Vital Signs Temp 99.6 F 07/17/17 22:04 Pulse 106 H 07/17/17 23:28 Resp 22 07/17/17 23:28 BP 101/59 L 07/17/17 23:28 Pulse Ox 95 07/17/17 23:28 - Medical History PMH: Hypercholesterolemia (Hypertriglyceridemia.) Surgical History: No Surg Hx Family History: States: No Known Family Hx - Social History Hx Alcohol Use: No Hx Substance Use: No - Immunization History Hx Tetanus Toxoid Vaccination: No Hx Influenza Vaccination: No Hx Pneumococcal Vaccination: No Review Of Systems Constitutional: Negative for: Fever, Chills Cardiovascular: Negative for: Chest Pain Respiratory: Negative for: Shortness of Breath Gastrointestinal: Positive for: Nausea, Abdominal Pain, Diarrhea Genitourinary: Negative for: Dysuria, Hematuria Skin: Negative for: Rash Physical Exam - Physical Exam Appears: Non-toxic, No Acute Distress Skin: Warm, Dry Head: Normacephalic Eye(s): bilateral: Normal Inspection Oral Mucosa: Moist Throat: No Erythema, No Exudate Neck: Supple Chest: Symmetrical Cardiovascular: Rhythm Regular Respiratory: No Rales, No Rhonchi, No Wheezing Gastrointestinal/Abdominal: Soft, Tenderness (mid epigastric), No Guarding, No Rebound Back: Normal Inspection Extremity: Bilateral: Atraumatic, Normal Color And Temperature, Normal ROM Neurological/Psych: Oriented x3, Normal Speech Gait: Steady ED Course And Treatment - Laboratory Results Result Diagrams: 07/17/17 21:03 07/17/17 21:03 O2 Sat by Pulse Oximetry: 96 (ON RA) Pulse Ox Interpretation: Normal - CT Scan/US CT abd/pelvis Other Rad Studies (CT/US): Read By Radiologist, Radiology Report Reviewed CT/US Interpretation: IMPRESSION: No definitive, interval or acute C.T. findings to explain the patient's presentation. Stable small hepatic hypodensities which are likely benign. There is hepatomegaly and fatty infiltration of the liver. Previous small pancreatic hypodensity is not identified with certainty. The pancreas enhances. homogeneously without significant peripancreatic induration to suggest pancreatitis.Chemical. pancreatitis can be present in the absence of CT findings. Diverticulosis. Thank you for allowing us to participate in the care of your patient. Dictated and Authenticated by: Stefanie Lofton MD. 07/17/2017 11:20 PM Eastern Time ([place] & [place]) Progress Note: Plan: - CT abd/pelvis. - Labs. - IV fluids. - Zofran 4 mg IVP. - UA. - Stool culture Disposition Discussed With : David Vera Comment: accepted the pt on his service and took over the care at 12:21 AM Doctor Will See Patient In The: Hospital Counseled Patient/Family Regarding: Studies Performed, Diagnosis - Disposition Disposition: HOSPITALIZED Disposition Time: 20:27 Condition: FAIR Forms: [facility] ([place]ish) - POA Present On Arrival: Poor Glycemic Control - Clinical Impression Clinical Impression: Abdominal pain, Hypertriglyceridemia, Nausea, Vomiting, Pancreatitis - Scribe Statement The provider has reviewed the documentation as recorded by the Scribe Joseph Guzman All medical record entries made by the Scribe were at my direction and personally dictated by me. I have reviewed the chart and agree that the record accurately reflects my personal performance of the history, physical exam, medical decision making, and the department course for this patient. I have also personally directed, reviewed, and agree with the discharge instructions and disposition. Decision To Admit - Pt Status Changed To: Hospital Disposition Of: Inpatient - Admit Certification Admit to Inpatient:: After my assessment, the patient will require hospitalization for at least two midnights. This is because of the severity of symptoms shown, intensity of services needed, and/or the medical risk in this patient being treated as an outpatient. - InPatient: Physician Admission Certification:: After my assessment, the patient will require hospitalization for at least two midnights. This is because of the severity of symptoms shown, intensity of services needed, and/or the medical risk in this patient being treated as an outpatient. - . Bed Request Type: Regular Admitting Physician: David Vera Patient Diagnosis: Abdominal pain, Hypertriglyceridemia, Nausea, Vomiting, Pancreatitis
[2017-07-17] MEDS ORDERED: Sodium Chloride 0.9% 1,000 ML ONE (21:02)
[2017-07-17 21:08] LABS: EOS % 0.1 % (0.0-4.0); NEUT # 6.3 K/uL (1.8-7.0); WHITE BLOOD COUNT 7.8 K/uL (4.8-10.8)
[2017-07-17 21:10] LABS: BASO % 0.3 % (0.0-2.0); HEMOGLOBIN 14.4 g/dL (11.0-16.0); LYMPH # 0.9 K/uL (1.0-4.3); LYMPH % 12.1 % (20.0-40.0); MEAN CELL VOLUME 82.6 fL (81.0-99.0); MEAN CORPUSCULAR HEMOGLOBIN 28.7 pg (27.0-31.0); MEAN CORPUSCULAR HGB CONC 34.8 g/dL (33.0-37.0); MONO # 0.5 K/uL (0.0-0.8); MONO % 6.2 % (0.0-10.0); NEUT % 81.3 % (50.0-75.0); NRBC % 0.2 % (0.0-2.0)
[2017-07-17 21:11] LABS: SQUAMOUS EPITHIAL 3 /hpf (0-5); URINE BILIRUBIN NEGATIVE (NEGATIVE); URINE BLOOD 1+ (NEGATIVE); URINE CLARITY Clear (Clear); URINE COLOR Yellow (YELLOW); URINE GLUCOSE (UA) NORMAL (Normal); URINE LEUKOCYTE ESTERASE NEG Leu/uL (Negative); URINE PROTEIN NEGATIVE (NEGATIVE); URINE UROBILINOGEN NORMAL mg/dL (0.2-1.0)
[2017-07-17 21:19] LABS: ALB/GLOB RATIO 1.3 (1.0-2.1); ALBUMIN 4.7 g/dL (3.5-5.0); ALT/SGPT 37 U/L (9-52); AST/SGOT 34 U/L (14-36); BLOOD UREA NITROGEN 18 mg/dL (7-17); CALCIUM 9.2 mg/dl (8.6-10.4); GFR AFRICAN-AMERICAN > 60; GFR NON-AFRICAN AMERICAN > 60; LIPASE 97 U/L (23-300)
[2017-07-17 21:21] LABS: INR 1.1; PROTHROMBIN TIME 12.1 SECONDS (9.7-12.2)
[2017-07-17] MEDS ORDERED: DiphenhydrAMINE 50 mg/ml Inj IVP STA (21:25)
[2017-07-17] MEDS ORDERED: DiphenhydrAMINE 50 mg/ml Inj ONE (21:44)
[2017-07-17] MEDS ORDERED: Iodixanol 320 MG/ML 100 ML BOTTLE IV ONE (21:56)
[2017-07-18] MEDS ORDERED: HYDROmorphone 0.5 mg/0.5 ml ISec IVP PRN (00:24)
[2017-07-18 01:32] VITALS: RESP 20
[2017-07-18] MEDS: Dextrose 5%/0.45% NS 1,000 ML IV SCH ×2 (07:56→19:11)
--- NOTE | 2017-07-18 08:07 | CT ---
PROCEDURE: CT Abdomen and Pelvis with contrast HISTORY: abd pain, hx of pancreatic and liver lession COMPARISON: 01/19/2017. TECHNIQUE: Contrast dose: 100 cc of Omnipaque Radiation dose: Total exam DLP = to under 50 mGy-cm. This CT exam was performed using one or more of the following dose reduction techniques: Automated exposure control, adjustment of the mA and/or kV according to patient size, and/or use of iterative reconstruction technique. FINDINGS: LOWER THORAX: Unremarkable. LIVER: Fatty liver with stable hepatic hypodensities. GALLBLADDER AND BILE DUCTS: Unremarkable. PANCREAS: Unremarkable. No gross lesion or ductal dilatation. SPLEEN: Unremarkable. ADRENALS: Unremarkable. No mass. KIDNEYS AND URETERS: Unremarkable. No hydronephrosis. No solid mass. VASCULATURE: Unremarkable. No aortic aneurysm. BOWEL: Unremarkable. No obstruction. No gross mural thickening. APPENDIX: Normal appendix. PERITONEUM: Unremarkable. No free fluid. No free air. LYMPH NODES: Unremarkable. No enlarged lymph nodes. BLADDER: Unremarkable. REPRODUCTIVE: Leiomyomatous uterus BONES: No acute fracture. OTHER FINDINGS: None. IMPRESSION: Fatty liver with stable hepatic hypodensities. No evidence of pancreatic abnormality. Leiomyomatous uterus
[2017-07-18] MEDS ORDERED: Gadodiamide 287 mg/ml 20 ml IV ONE (09:05)
[2017-07-18 09:13] LABS: BASO % 0.3 % (0.0-2.0); HEMOGLOBIN 13.5 g/dL (11.0-16.0); LYMPH # 1.1 K/uL (1.0-4.3); LYMPH % 15.8 % (20.0-40.0); MEAN CELL VOLUME 82.5 fL (81.0-99.0); MEAN CORPUSCULAR HGB CONC 35.1 g/dL (33.0-37.0); MEAN PLATELET VOLUME 8.4 fL (7.2-11.7); MONO # 0.2 K/uL (0.0-0.8); MONO % 2.6 % (0.0-10.0); NEUT # 5.8 K/uL (1.8-7.0); NEUT % 81.3 % (50.0-75.0); NRBC % 0.4 % (0.0-2.0); RBC 4.66 Mil/uL (3.80-5.20); RED CELL DISTRIBUTION WIDTH 13.4 % (11.5-14.5); WHITE BLOOD COUNT 7.2 K/uL (4.8-10.8)
[2017-07-18 09:27] LABS: ALB/GLOB RATIO 1.3 (1.0-2.1); ALBUMIN 4.5 g/dL (3.5-5.0); ALT/SGPT 28 U/L (9-52); AMYLASE 54 U/L (30-110); AST/SGOT 26 U/L (14-36); BLOOD UREA NITROGEN 19 mg/dL (7-17); CALCIUM 9.1 mg/dl (8.6-10.4); GFR AFRICAN-AMERICAN > 60; GFR NON-AFRICAN AMERICAN > 60; HDL CHOLESTEROL 42 mg/dL (30-70); LIPASE 44 U/L (23-300)
[2017-07-18 09:34] LABS: LDL CHOLESTEROL 141 mg/dL (0-129)
--- NOTE | 2017-07-18 12:26 | MRI ---
PROCEDURE: Magnetic Resonance Cholangiopancreatography HISTORY: COMPARISON: None available. TECHNIQUE: Multiplanar, multisequence MR images of the abdomen were obtained, including heavily T2 weighted MRCP images of the biliary system. Rotating maximum intensity projection images of the biliary system were generated. FINDINGS: MRCP: The common bile duct is of a normal caliber. It measures 4 mm in diameter. No evidence of choledocholithiasis. No intrahepatic biliary ductal dilatation. LIVER: Normal size and contour. Mild diffuse steatosis with diffuse signal loss on opposed phase imaging. Multiple small masses which are of low T1 and high T2 signal, likely cystic. These are unchanged when compared to the prior examination. The largest such mass measures approximately 1.5 cm in the inferior right hepatic lobe. There is no new hepatic mass. The contour is smooth. There is no biliary dilatation. There is no abnormal parenchymal enhancement following gadolinium administration. None of the masses identified above enhance following gadolinium administration. GALLBLADDER: Unremarkable. SPLEEN: Unremarkable. PANCREAS: Significant only for a 4 mm high T2 signal lesion in the pancreatic body. This is difficult to appreciate on prior examination. The lesion described on prior MRCP examination is not clearly identifiable in retrospect. There is no pancreatic ductal dilatation. There is no abnormal enhancement following intravenous gadolinium administration. ADRENALS: Unremarkable. KIDNEYS: Unremarkable. AORTA: No aneurysm. ASCITES: None. OTHER FINDINGS: None. IMPRESSION: Multiple fluid signal hepatic masses unchanged compared to prior MR examination. No evidence of biliary obstruction. 4 mm high T2 signal lesion in the pancreatic body without enhancement. Otherwise unremarkable pancreas. No additional abnormality.
[2017-07-18 15:55] VITALS: TEMP 97.7
--- NOTE | 2017-07-18 16:33 | CP.PCM.HP ---
History of Present Illness - History of Present Illness History of Present Illness: 62 yo female, an RN at [employer] developed abdominal cramps, nausea and diarrhea, generalized. about one hour eating rice at a restaurant. She denies any fever, any vomiting. She had an acute pancreatitis and hypertriglyceridemia 6 months ago. She is on Gemfibrozil 600 mg PO BID. An MRCP reveals fatty liver, with a 4 mm nodule in the pancreatic body ( It was 11 mm in size 6 months ago). Present on Admission - Present on Admission Any Indicators Present on Admission: No Review of Systems - Gastrointestinal Gastrointestinal: Abdominal Pain, Cramping, Diarrhea, Nausea Past Patient History - Infectious Disease Hx of Infectious Diseases: None - Tetanus Immunizations Tetanus Immunization: Unknown - Past Medical History & Family History Past Medical History?: Yes - Past Social History Smoking Status: Never Smoked Alcohol: None Home Situation {Lives}: With Family Domestic Violence: Negative - CARDIAC Hx Cardiac Disorders: Yes Hx Angina: No Hx Atrial Fibrillation: No Hx Cardia Arrhythmia: No Hx Circulatory Problems: No Hx Congestive Heart Failure: No Hx Heart Attack: No Hx Heart Murmur: No Hx Heart Transplant: No Hx Hypercholesterolemia: Yes (Hypertriglyceridemia.) Hx Hypertension: No Hx Hypotension: No Hx Internal Defibrillator: No Hx Mitral Valve Prolapse: No Hx Pacemaker: No Hx Peripheral Edema: No Hx Peripheral Vascular Disease: No - PULMONARY Hx Respiratory Disorders: No - NEUROLOGICAL Hx Neurological Disorder: No - HEENT Hx HEENT Problems: Yes Hx Blind: No Hx Cataracts: No Hx Deafness: No Hx Difficulty Chewing: No Hx Epistaxis: No Hx Glaucoma: No Hx Macular Degeneration: No Hx Sinusitis: No Other/Comment: hx of meniere's disease - RENAL Hx Chronic Kidney Disease: No - ENDOCRINE/METABOLIC Hx Endocrine Disorders: No - HEMATOLOGICAL/ONCOLOGICAL Hx Blood Disorders: No - INTEGUMENTARY Hx Dermatological Problems: No - MUSCULOSKELETAL/RHEUMATOLOGICAL Hx Musculoskeletal Disorders: No Hx Falls: No - GASTROINTESTINAL Hx Gastrointestinal Disorders: Yes Hx Diarrhea: Yes Hx Vomiting: Yes - GENITOURINARY/GYNECOLOGICAL Hx Genitourinary Disorders: No - PSYCHIATRIC Hx Psychophysiologic Disorder: No Hx Substance Use: No - SURGICAL HISTORY Hx Surgeries: Yes Hx Section: Yes Other/Comment: lap-[place] - ANESTHESIA Hx Anesthesia: Yes Hx Anesthesia Reactions: No Hx Malignant Hyperthermia: No Has any member of the family had a problem w/ anesthesia?: No Meds Allergies/Adverse Reactions: Allergies Allergy/AdvReac Type Severity Reaction Status Date / Time fenofibrate Allergy Verified 07/17/17 19:50 Physical Exam - Constitutional Appears: No Acute Distress - Head Exam Head Exam: NORMAL INSPECTION - Eye Exam Eye Exam: Normal appearance - ENT Exam ENT Exam: Normal Exam - Neck Exam Neck exam: Positive for: Normal Inspection - Respiratory Exam Respiratory Exam: Clear to Auscultation Bilateral, NORMAL BREATHING PATTERN - Cardiovascular Exam Cardiovascular Exam: REGULAR RHYTHM - GI/Abdominal Exam GI & Abdominal Exam: Normal Bowel Sounds, Soft Additional comments: Mild epigastric and briana-umbilical tenderness. - Rectal Exam Rectal Exam: Deferred - Extremities Exam Extremities exam: Positive for: normal inspection - Back Exam Back exam: NORMAL INSPECTION - Neurological Exam Neurological exam: Alert, Normal Gait, Oriented x3 - Skin Skin Exam: Dry, Intact, Normal Color, Warm Results - Vital Signs Recent Vital Signs: Last Vital Signs Temp 97.7 F 07/18/17 15:50 Pulse 78 07/18/17 15:50 Resp 20 07/18/17 15:50 BP 106/74 07/18/17 15:50 Pulse Ox 97 07/18/17 15:50 - Labs Result Diagrams: 07/18/17 08:56 07/18/17 09:05 Labs: Laboratory Results - last 24 hr 07/17/17 07/17/17 07/17/17 20:59 21:03 21:03 WBC 7.8 D RBC 5.00 Hgb 14.4 D Hct 41.3 MCV 82.6 MCH 28.7 MCHC 34.8 RDW 13.0 Plt Count 214 MPV 8.0 Neut % (Auto) 81.3 H Lymph % (Auto) 12.1 L [place] % (Auto) 6.2 Eos % (Auto) 0.1 Baso % (Auto) 0.3 Neut # (Auto) 6.3 Lymph # (Auto) 0.9 L [place] # (Auto) 0.5 Eos # (Auto) 0.0 Baso # (Auto) 0.0 PT 12.1 INR 1.1 APTT 47 H Sodium Potassium Chloride Carbon Dioxide Anion Gap BUN Creatinine Est GFR ( Amer) Est GFR (Non-Af Amer) Random Glucose Calcium Total Bilirubin AST ALT Alkaline Phosphatase Total Protein Albumin Globulin Albumin/Globulin Ratio Triglycerides Cholesterol LDL Cholesterol Direct HDL Cholesterol Amylase Lipase Urine Color Yellow Urine Clarity Clear Urine pH 5.0 Ur Specific [place] 1.020 Urine Protein Negative Urine Glucose (UA) Normal Urine Ketones Negative Urine Blood 1+ H Urine Nitrate Negative Urine Bilirubin Negative Urine Urobilinogen Normal Ur Leukocyte Esterase Neg Urine WBC (Auto) < 1 Urine RBC (Auto) < 1 Ur Squamous Epith Cells 3 07/17/17 07/18/17 07/18/17 21:03 08:56 09:05 WBC 7.2 RBC 4.66 Hgb 13.5 Hct 38.5 MCV 82.5 MCH 29.0 MCHC 35.1 RDW 13.4 Plt Count 214 MPV 8.4 Neut % (Auto) 81.3 H Lymph % (Auto) 15.8 L [place] % (Auto) 2.6 Eos % (Auto) 0.0 Baso % (Auto) 0.3 Neut # (Auto) 5.8 Lymph # (Auto) 1.1 [place] # (Auto) 0.2 Eos # (Auto) 0.0 Baso # (Auto) 0.0 PT INR APTT Sodium 145 146 Potassium 3.7 3.7 Chloride 106 106 Carbon Dioxide 22 23 Anion Gap 20 20 BUN 18 H 19 H Creatinine 0.6 L 0.6 L Est GFR ( Amer) > 60 > 60 Est GFR (Non-Af Amer) > 60 > 60 Random Glucose 122 H 141 H Calcium 9.2 9.1 Total Bilirubin 0.9 0.9 AST 34 26 ALT 37 28 Alkaline Phosphatase 60 55 Total Protein 8.3 8.1 Albumin 4.7 4.5 Globulin 3.6 3.6 Albumin/Globulin Ratio 1.3 1.3 Triglycerides 115 D Cholesterol 215 H LDL Cholesterol Direct 141 H HDL Cholesterol 42 Amylase 54 Lipase 97 44 Urine Color Urine Clarity Urine pH Ur Specific [place] Urine Protein Urine Glucose (UA) Urine Ketones Urine Blood Urine Nitrate Urine Bilirubin Urine Urobilinogen Ur Leukocyte Esterase Urine WBC (Auto) Urine RBC (Auto) Ur Squamous Epith Cells Assessment & Plan (1) Abdominal pain Assessment and Plan: With nausea and diarrhea, and unchanged MRCP, normal serum lipase and amylase: likely an acute gastro-enteritis from foods poisoning. Will try a full liquid diet since the patient's abdominal pain improves and she has no more nausea. Will discharge her home in AM, if she tolerates full liquid diet. Status: Acute (2) Hypertriglyceridemia Assessment and Plan: To decrease Gemfibrozil to 600 mg PO qd. Status: Chronic Decision To Admit - Pt Status Changed To: Hospital Disposition Of: Inpatient - Admit Certification Admit to Inpatient:: After my assessment, the patient will require hospitalization for at least two midnights. This is because of the severity of symptoms shown, intensity of services needed, and/or the medical risk in this patient being treated as an outpatient. - InPatient: Physician Admission Certification:: After my assessments, the patient requires hospitalization for at least 2 midnights. - . Bed Request Type: Regular Admitting Physician: David Vera
--- NOTE | 2017-07-18 17:52 | CP.PCM.CON ---
History of Present Illness - History of Present Illness History of Present Illness: This is a 62 year old woman with abdominal pain and diarrhea. Patient was in her usual state of health until yesterday, when she developed weakness, nausea, abdominal pain and diarrhea one hour after eating chicken and rice soup which she bought at a restaurant. The diarrhea continued, turning watery, five times yesterday and three times today. The pain is locatied in the upper abdomen, is described as sharp, intermitternt, lasting several minutes at a time, and is unrelated to meals and to defecation. She denies having fever, vomiting, rectal bleeding. Patient has a history of hypertriglyceridemia for the past several years, with triglycerides documented as high as 1000. She was admitted for three days in January,, for pancreatitis which was attributed to the hy[ ertriglyceridemia, [address] scan of the abdomen on admission showed a fatty liver and fibroids of the uterus. Review of Systems - Constitutional Constitutional: absent: Chills, Fever - Cardiovascular Cardiovascular: absent: Chest Pain - Respiratory Respiratory: absent: Dyspnea, Dyspnea on Exertion - Gastrointestinal Gastrointestinal: Abdominal Pain, Diarrhea, Nausea. absent: Constipation, Hematochezia, Vomiting - Genitourinary Genitourinary: absent: Dysuria, Hematuria - Integumentary Integumentary: absent: Rash Past Patient History - Infectious Disease Hx of Infectious Diseases: None - Tetanus Immunizations Tetanus Immunization: Unknown - Past Medical History & Family History Past Medical History?: Yes - Past Social History Smoking Status: Never Smoked Alcohol: None Home Situation {Lives}: With Family Domestic Violence: Negative - CARDIAC Hx Cardiac Disorders: Yes Hx Angina: No Hx Atrial Fibrillation: No Hx Cardia Arrhythmia: No Hx Circulatory Problems: No Hx Congestive Heart Failure: No Hx Heart Attack: No Hx Heart Murmur: No Hx Heart Transplant: No Hx Hypercholesterolemia: Yes (Hypertriglyceridemia.) Hx Hypertension: No Hx Hypotension: No Hx Internal Defibrillator: No Hx Mitral Valve Prolapse: No Hx Pacemaker: No Hx Peripheral Edema: No Hx Peripheral Vascular Disease: No - PULMONARY Hx Respiratory Disorders: No - NEUROLOGICAL Hx Neurological Disorder: No - HEENT Hx HEENT Problems: Yes Hx Blind: No Hx Cataracts: No Hx Deafness: No Hx Difficulty Chewing: No Hx Epistaxis: No Hx Glaucoma: No Hx Macular Degeneration: No Hx Sinusitis: No Other/Comment: hx of meniere's disease - RENAL Hx Chronic Kidney Disease: No - ENDOCRINE/METABOLIC Hx Endocrine Disorders: No - HEMATOLOGICAL/ONCOLOGICAL Hx Blood Disorders: No - INTEGUMENTARY Hx Dermatological Problems: No - MUSCULOSKELETAL/RHEUMATOLOGICAL Hx Musculoskeletal Disorders: No Hx Falls: No - GASTROINTESTINAL Hx Gastrointestinal Disorders: Yes Hx Diarrhea: Yes Hx Vomiting: Yes - GENITOURINARY/GYNECOLOGICAL Hx Genitourinary Disorders: No - PSYCHIATRIC Hx Psychophysiologic Disorder: No Hx Substance Use: No - SURGICAL HISTORY Hx Surgeries: Yes Hx Section: Yes Other/Comment: lap-[place] - ANESTHESIA Hx Anesthesia: Yes Hx Anesthesia Reactions: No Hx Malignant Hyperthermia: No Has any member of the family had a problem w/ anesthesia?: No Meds Allergies/Adverse Reactions: Allergies Allergy/AdvReac Type Severity Reaction Status Date / Time fenofibrate Allergy Verified 07/17/17 19:50 - Medications Medications: Current Medications Hydromorphone HCl (Dilaudid) 1 mg IVP Q4H PRN PRN Reason: Pain, moderate (4-7) Dextrose/Sodium Chloride (Dextrose 5%/0.45% Ns 1000 Ml) 1,000 mls @ 100 mls/hr IV .Q10H THERESE Last Admin: 07/18/17 07:56 Dose: 100 mls/hr Ondansetron HCl (Zofran Inj) 4 mg IVP Q4 PRN PRN Reason: Nausea/Vomiting Physical Exam - Constitutional Appears: No Acute Distress - Head Exam Head Exam: ATRAUMATIC, NORMOCEPHALIC - Eye Exam Eye Exam: EOMI, PERRL - Neck Exam Neck exam: Negative for: Lymphadenopathy, Thyromegaly - Respiratory Exam Respiratory Exam: NORMAL BREATHING PATTERN. absent: Rales, Rhonchi, Wheezes - Cardiovascular Exam Cardiovascular Exam: REGULAR RHYTHM, +S1, +S2. absent: Gallop, Rubs, Systolic Murmur - GI/Abdominal Exam GI & Abdominal Exam: Normal Bowel Sounds, Soft. absent: Mass, Organomegaly, Tenderness - Rectal Exam Rectal Exam: Deferred - Extremities Exam Extremities exam: Negative for: calf tenderness, pedal edema Results - Vital Signs Recent Vital Signs: Last Vital Signs Temp 97.7 F 07/18/17 15:50 Pulse 78 07/18/17 15:50 Resp 20 07/18/17 15:50 BP 106/74 07/18/17 15:50 Pulse Ox 97 07/18/17 15:50 - Labs Result Diagrams: 07/18/17 08:56 07/18/17 09:05 Labs: Laboratory Results - last 24 hr 07/17/17 07/17/17 07/17/17 20:59 21:03 21:03 WBC 7.8 D RBC 5.00 Hgb 14.4 D Hct 41.3 MCV 82.6 MCH 28.7 MCHC 34.8 RDW 13.0 Plt Count 214 MPV 8.0 Neut % (Auto) 81.3 H Lymph % (Auto) 12.1 L [place] % (Auto) 6.2 Eos % (Auto) 0.1 Baso % (Auto) 0.3 Neut # (Auto) 6.3 Lymph # (Auto) 0.9 L [place] # (Auto) 0.5 Eos # (Auto) 0.0 Baso # (Auto) 0.0 PT 12.1 INR 1.1 APTT 47 H Sodium Potassium Chloride Carbon Dioxide Anion Gap BUN Creatinine Est GFR ( Amer) Est GFR (Non-Af Amer) Random Glucose Calcium Total Bilirubin AST ALT Alkaline Phosphatase Total Protein Albumin Globulin Albumin/Globulin Ratio Triglycerides Cholesterol LDL Cholesterol Direct HDL Cholesterol Amylase Lipase Urine Color Yellow Urine Clarity Clear Urine pH 5.0 Ur Specific [place] 1.020 Urine Protein Negative Urine Glucose (UA) Normal Urine Ketones Negative Urine Blood 1+ H Urine Nitrate Negative Urine Bilirubin Negative Urine Urobilinogen Normal Ur Leukocyte Esterase Neg Urine WBC (Auto) < 1 Urine RBC (Auto) < 1 Ur Squamous Epith Cells 3 07/17/17 07/18/17 07/18/17 21:03 08:56 09:05 WBC 7.2 RBC 4.66 Hgb 13.5 Hct 38.5 MCV 82.5 MCH 29.0 MCHC 35.1 RDW 13.4 Plt Count 214 MPV 8.4 Neut % (Auto) 81.3 H Lymph % (Auto) 15.8 L [place] % (Auto) 2.6 Eos % (Auto) 0.0 Baso % (Auto) 0.3 Neut # (Auto) 5.8 Lymph # (Auto) 1.1 [place] # (Auto) 0.2 Eos # (Auto) 0.0 Baso # (Auto) 0.0 PT INR APTT Sodium 145 146 Potassium 3.7 3.7 Chloride 106 106 Carbon Dioxide 22 23 Anion Gap 20 20 BUN 18 H 19 H Creatinine 0.6 L 0.6 L Est GFR ( Amer) > 60 > 60 Est GFR (Non-Af Amer) > 60 > 60 Random Glucose 122 H 141 H Calcium 9.2 9.1 Total Bilirubin 0.9 0.9 AST 34 26 ALT 37 28 Alkaline Phosphatase 60 55 Total Protein 8.3 8.1 Albumin 4.7 4.5 Globulin 3.6 3.6 Albumin/Globulin Ratio 1.3 1.3 Triglycerides 115 D Cholesterol 215 H LDL Cholesterol Direct 141 H HDL Cholesterol 42 Amylase 54 Lipase 97 44 Urine Color Urine Clarity Urine pH Ur Specific [place] Urine Protein Urine Glucose (UA) Urine Ketones Urine Blood Urine Nitrate Urine Bilirubin Urine Urobilinogen Ur Leukocyte Esterase Urine WBC (Auto) Urine RBC (Auto) Ur Squamous Epith Cells Assessment & Plan (1) Diarrhea Assessment and Plan: Patient developed diarrhea shortly after eating chicken soup with nausea but no vomiting. This most likely represents food poisoning, perhaps due to ingestion of a pre-formed toxin (e.g., B. cereus, S aureus). Will check stool cultures and treat as indicated. Status: Acute
[2017-07-19] MEDS: Dextrose 5%/0.45% NS 1,000 ML IV SCH ×2 (03:30→05:10)
[2017-07-19 07:53] VITALS: BP 113/71; PULSE 65; O2SAT 96
== END 2017-07-19 09:14 | disposition home or self-care (01) | DRG 392 ==
LOC: C.ER 19:14 → C.5S 07-18 00:20
PROVIDERS: ADMIT Internal Medicine Cardiovascular Disease; ATTEND Internal Medicine Cardiovascular Disease
DX: A05.9 Bacterial foodborne intoxication, unspecified (principal); K76.0 Fatty (change of) liver, not elsewhere classified; D25.9 Leiomyoma of uterus, unspecified; E78.00 Pure hypercholesterolemia, unspecified; E78.1 Pure hyperglyceridemia; H81.09 Meniere's disease, unspecified ear